=== PATIENT | male | born 2000 | race Caucasian/White ===

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

== ENCOUNTER 2022-10-31 20:45 | Inpatient (IN) | payer OTHER ==
[~2022-10-31] VITALS: Ht 177.8 cm; Wt 75.3 kg
[2022-10-31 20:53] VITALS: BP 150/72
[2022-10-31 21:47] LABS: BASO % 0.3 % (0.0-1.0); EOS # 0.3 10*3/uL (0.0-0.4); EOS % 2.2 % (1.0-4.0); HEMATOCRIT 43.8 % (42.0-52.0); LYMPH # 2.1 10*3/uL (1.3-4.4); LYMPH % 17.4 % (27.0-41.0); MEAN CELL VOLUME 86.2 fl (80.0-94.0); MEAN CORPUSCULAR HGB 30.3 pg (27.0-31.0); MEAN CORPUSCULAR HGB CONC 35.2 g/dl (33.0-37.0); MEAN PLATELET VOLUME 10.1 fl (9.6-12.3); MONO # 0.6 10*3/uL (0.1-1.0); MONO % 4.8 % (3.0-9.0); PLATELET COUNT AUTOMATED 238 10*3/uL (130-400); RED BLOOD COUNT 5.08 10*6/uL (4.50-5.90); RED CELL DISTRI WIDTH 11.7 % (0-14.5)
[2022-10-31 22:07] LABS: BUN 9 mg/dl (9-23); CHLORIDE 105 mmol/L (98-107); POTASSIUM 3.7 mmol/L (3.4-5.1)
[2022-11-01 00:24] VITALS: BP 100/56
[2022-11-01 01:30] VITALS: BP 119/69
[2022-11-01 08:00] VITALS: BP 121/57
[2022-11-01 12:00] VITALS: BP 116/52
[2022-11-01] MEDS ORDERED: CLARITIN10 MG PO (14:46)
[2022-11-01 15:31] VITALS: BP 119/46
[2022-11-01 20:00] VITALS: BP 110/56
[2022-11-02] VITALS: BP 112/60
[2022-11-02 06:29] LABS: BASO % 0.6 % (0.0-1.0); EOS # 0.4 10*3/uL (0.0-0.4); EOS % 7.5 % (1.0-4.0); HEMATOCRIT 42.8 % (42.0-52.0); LYMPH # 1.5 10*3/uL (1.3-4.4); LYMPH % 28.5 % (27.0-41.0); MEAN CELL VOLUME 89.2 fl (80.0-94.0); MEAN CORPUSCULAR HGB 30.2 pg (27.0-31.0); MEAN CORPUSCULAR HGB CONC 33.9 g/dl (33.0-37.0); MEAN PLATELET VOLUME 10.4 fl (9.6-12.3); MONO # 0.6 10*3/uL (0.1-1.0); MONO % 10.8 % (3.0-9.0); NEUT # 2.7 10*3/uL (2.3-7.9); NEUT % 52.4 % (47.0-73.0); PLATELET COUNT AUTOMATED 182 10*3/uL (130-400); RED CELL DISTRI WIDTH 12.3 % (0-14.5); WHITE BLOOD COUNT 5.2 10*3/uL (4.8-10.8)
[2022-11-02 06:40] LABS: ACT PARTIAL THROMBO TIME 28.5 SECONDS (20.0-32.1)
[2022-11-02 07:19] LABS: ALKALINE PHOSPHATASE 56 U/L (46-116); BUN 7 mg/dl (9-23); CHLORIDE 108 mmol/L (98-107); CHOLESTEROL 151 mg/dL (<200); FREE T4 1.07 ng/dl (0.89-1.76); LDL CHOLESTEROL 89 mg/dL (9-159); SGPT/ALT 17 U/L (10-49); THYROID STIM HORMONE (HS) 1.879 uIU/ml (0.550-4.780); TOTAL PROTEIN 6.2 gm/dL (6.0-8.0); TRIGLYCERIDES 37 mg/dl (<150)
[2022-11-02 07:56] LABS: VITAMIN D, 25-HYDROXY 57.6 ng/mL (30-100)
[2022-11-02 08:00] VITALS: BP 113/53
[2022-11-02 12:00] VITALS: BP 113/50
[2022-11-02] MEDS ORDERED: VIBRA-TAB100 MG PO ×3 (12:18→13:11)
== END 2022-11-02 13:04 | disposition home or self-care (01) | DRG 383 ==
LOC: ED 20:45 → EDHOLD 11-01 → 5E 11-01 00:38
PROVIDERS: Emergency Medicine; Student in an Organized Health Care Education/Training Program; ADMIT Internal Medicine; ATTEND Internal Medicine
DX: L03.213 Periorbital cellulitis (principal); F41.9 Anxiety disorder, unspecified; D72.829 Elevated white blood cell count, unspecified; D72.825 Bandemia; Z88.8 Allergy status to other drugs, medicaments and biological substances; Z83.3 Family history of diabetes mellitus